=== PATIENT | male | born 1985 | race Caucasian/White ===

== ENCOUNTER 2017-11-10 09:02 | Emergency (ER) | payer SELFPAY ==
[2017-11-10 09:14] VITALS: BP 133/84
--- NOTE | 2017-11-10 09:49 | ER Document Report ---
ED Medical Screen (RME) - General Chief Complaint: Abscess Stated Complaint: POSSIBLE ABSCESS Time Seen by Provider: 11/10/17 09:48 Mode of Arrival: Ambulatory Information source: Patient Notes: 32-year-old male with a history of boils who presents to the emergency room with 3 day history of buttock abscess. He has had subjective fevers. He has no medical problems, no allergies and he is on no medicines. No known history of MRSA. TRAVEL OUTSIDE OF THE [place] IN LAST 30 DAYS: No - Related Data Allergies/Adverse Reactions: No Known Allergies Allergy (Verified 11/10/17 09:10) Past Medical History - Immunizations Hx Diphtheria, Pertussis, Tetanus Vaccination: Yes Physical Exam - Vital signs Vitals: Temp Pulse Resp BP Pulse Ox 99.2 F 99 14 133/84 H 97 11/10/17 09:13 11/10/17 09:13 11/10/17 09:13 11/10/17 09:13 11/10/17 09:13 Course - Vital Signs Vital signs: Temp Pulse Resp BP Pulse Ox 99.2 F 99 14 133/84 H 97 11/10/17 09:13 11/10/17 09:13 11/10/17 09:13 11/10/17 09:13 11/10/17 09:13
[2017-11-10] MEDS ORDERED: ONDANSETRON HCL INJ/PF 4 MG/2 ML SDV IV ONE (10:04)
[2017-11-10] MEDS ORDERED: HYDROMORPHONE HCL INJ/PF 2 MG/ML AMPULE IV ONE (10:04)
[2017-11-10] MEDS ORDERED: LIDOCAINE 1%/EPINEPHRINE INJ 20 ML VIAL INJ ONE (10:05)
--- NOTE | 2017-11-10 10:09 | ER Document Report ---
ED General - General Chief Complaint: Abscess Stated Complaint: POSSIBLE ABSCESS Time Seen by Provider: 11/10/17 09:48 Mode of Arrival: Ambulatory TRAVEL OUTSIDE OF THE [place] IN LAST 30 DAYS: No - HPI Patient complains to provider of: Swelling and pain in the glutes Onset: Other - Otherwise healthy 32-year-old man who presents for evaluation of painful swelling along his right gluteal crease which he has had for 4 days. He notes he had 1 days of fever yesterday, denies any nausea emesis diarrhea constipation dysuria or other systemic signs of infection including fevers or chills denies any difficulty vacating his bowels or dysuria. Denies any substance use, has never had anything like this in the past, nothing seemed to make it better or worse, he notes that he said difficulty "getting at it" - Related Data Allergies/Adverse Reactions: No Known Allergies Allergy (Verified 11/10/17 09:10) Past Medical History - General Information source: Patient - Social History Smoking Status: Never Smoker Frequency of alcohol use: None Drug Abuse: None Family History: Reviewed & Not Pertinent Patient has suicidal ideation: No Patient has homicidal ideation: No Renal/ Medical History: Denies: Hx Peritoneal Dialysis - Immunizations Hx Diphtheria, Pertussis, Tetanus Vaccination: Yes Review of Systems - Review of Systems -: Yes All other systems reviewed and negative Physical Exam - Vital signs Vitals: Temp Pulse Resp BP Pulse Ox 99.2 F 99 14 133/84 H 97 11/10/17 09:13 11/10/17 09:13 11/10/17 09:13 11/10/17 09:13 11/10/17 09:13 - General General appearance: Appears well In distress: None - HEENT Head: Normocephalic Eyes: Normal Conjunctiva: Normal Cornea: Normal Extraocular movements intact: Yes - Respiratory Respiratory status: No respiratory distress Chest status: Nontender Breath sounds: Normal Chest palpation: Normal - Cardiovascular Rhythm: Regular Heart sounds: Normal auscultation Murmur: No - Abdominal Inspection: Normal Distension: No distension Tenderness: Nontender - Rectal Notes: The inferior aspect of the gluteal crease there is an erythematous swollen spot along the right glutes with a small draining punctate area with purulent material, markedly tender to palpation - Back Back: Normal - Extremities General upper extremity: Normal inspection General lower extremity: Normal inspection - Neurological Neuro grossly intact: Yes Cognition: Normal Orientation: AAOx4 Course - Re-evaluation Re-evalutation: 11/10/17 18:54 32 yo male with abscess in between the glutes along the right crease. There is a small comedone which is draining, he does not have any systemic signs of infection at this time. He has got intact rectal tone no pain defecating has not had any abscess involvement near to the rectum. Place lidocaine subsequently drained. Underwent copious purulent drainage, packed utilizing iodoform gauze gave referral to general surgeon. Current plan will be for discharge with Bactrim for presumptive coverage of infection. Patient will be discharged with return precautions a brief prescription for narcotic pain medication. - Vital Signs Vital signs: Temp Pulse Resp BP Pulse Ox 99.2 F 99 14 133/84 H 97 11/10/17 09:13 11/10/17 09:13 11/10/17 09:13 11/10/17 09:13 11/10/17 09:13 Procedures - Incision and Drainage Right Lower Buttock Time completed: 10:40 Type: Simple Anesthetic type: 1% Lidocaine w/epi mL's of anesthetic: 10 Blade size: 11 I&D procedure: Chlorprep applied Incision Method: Incision made by scalpel Amount/type of drainage: purulent copious Discharge - Discharge Clinical Impression: Abscess, Gluteal pain Condition: Good Disposition: HOME, SELF-CARE Instructions: Abscess ([facility]), Cephalexin ([facility]), Oral Narcotic Medication ([facility]) Prescriptions: Hydrocodone/Acetaminophen [[place] 5-325 mg Tablet] 1 tab PO Q8H PRN #10 tablet PRN Reason: Sulfamethoxazole/Trimethoprim [Bactrim Ds Tablet] 1 each PO BID #20 tablet Forms: Elevated Blood Pressure, Return to Work Referrals: ANUSHKA WOLF MD [ACTIVE STAFF] - Follow up as needed
== END 2017-11-10 11:15 | disposition home or self-care (01) ==
LOC: ER 09:02
DX: L02.31 Cutaneous abscess of buttock (principal); L70.0 Acne vulgaris
CPT/HCPCS: 99283; 96374; 96375; 10060; A6266; J3490; J1170; J2405